=== PATIENT | male | born 1955 | race Caucasian/White ===

== ENCOUNTER → 2017-04-18 | Outpatient (CLI) | payer MEDICARE, MEDICAID ==
[~2017-04-18] MED LIST: HYDR-3129 PO; LISI-360 PO; MOBI7.5S PO; NEUR600T PO; OMEP20TA39 PO
--- NOTE | 2017-04-19 09:58 | RSPPFT ---
DATE OF PROCEDURE: 04/18/17 COMMENTS: The forced vital capacity is normal. The FEV1 is moderately reduced with no significant improvement after bronchodilator. The FEF 25-75 is markedly reduced with borderline improvement after bronchodilator. The FEV1/FVC ratio is markedly reduced. The residual volume is normal with a decreased total lung capacity and an increased RV/TLC ratio. IMPRESSION: This is compatible with severe, reversible, large and small airways, obstructive lung disease with a small restrictive component. The diffusion capacity is also reduced.
== END ==
LOC: HRSP 10:06
PROVIDERS: ATTEND Internal Medicine
DX: J44.9 Chronic obstructive pulmonary disease, unspecified (principal)
CPT/HCPCS: 94060; 94726; 94729